=== PATIENT | male | born 1980 | race African-American/Black ===

== ENCOUNTER 2018-03-15 11:11 | Emergency (ER) | payer SELFPAY ==
[~2018-03-15] VITALS: Ht 177.8 cm; Wt 91.0 kg
[2018-03-15 12:47] VITALS: BP 137/66
[2018-03-15] MEDS ORDERED: IBUPROFEN 600MG TABLET PO ONE (13:45)
== END 2018-03-15 14:27 | disposition home or self-care (01) ==
LOC: ER 13:03
DX: S16.1XXA Strain of muscle, fascia and tendon at neck level, initial encounter (principal); S39.012A Strain of muscle, fascia and tendon of lower back, initial encounter; R03.0 Elevated blood-pressure reading, without diagnosis of hypertension; V43.62XA Car passenger injured in collision with other type car in traffic accident, initial encounter; Y93.89 Activity, other specified; Y92.410 Unspecified street and highway as the place of occurrence of the external cause
CPT/HCPCS: 99282